=== PATIENT | female | born 1945 | race Caucasian/White ===

== ENCOUNTER 2025-02-17 18:00 | Inpatient (IN) | payer OTHER, SELFPAY ==
[2025-02-17] VITALS (8 sets, daily range): BP systolic 142–180; BP diastolic 83–88; PULSE 57–87; RESP 16–25; TEMP 36.2–37; O2SAT 96–97; BMI 30.9; BMI 30.3
--- NOTE | 2025-02-17 19:02 | CT_ITS ---
PROCEDURE: STROKE CT BRAIN/HEAD WITHOUT CONTRAST 02/17/2025 REASON FOR EXAM: VERTIGO TECHNIQUE: Procedure Code: CTBR.ST Modality: CT Procedure: STROKE BRAIN/HEAD WITHOUT CONT Coronal and Sagittal reconstruction series were provided. One or more dose reduction techniques were used (e.g., Automated exposure control, adjustment of the mA and/or kV according to patient size, use of iterative reconstruction technique. RADIATION DOSE SUMMARY: CTDlvol: 44.99 mGy DLP: 796.11 mGycm COMPARISON: None. FINDINGS: No acute intracranial hemorrhage, extra-axial collection, mass effect or evidence of acute infarct. Mild generalized brain parenchymal volume loss and chronic microangiopathic changes in the supratentorial white matter. Atherosclerotic calcification along the carotid siphons. Unremarkable orbits. Intact skull base and calvarium. Opacification of the right sphenoid sinus with chronic peripheral osseous remodeling. Remainder of the paranasal sinuses and bilateral mastoid air cells are clear. CT/STROKE Brain/Head without Cont IMPRESSION: No evidence of acute intracranial pathology. Mild generalized volume loss and chronic microangiopathic changes. Reading Location: [facility]
--- NOTE | 2025-02-17 19:02 | EKG12_ITS ---
Test Reason : DYSRHYTHMIA Blood Pressure : */* mmHG Vent. Rate : 71 BPM Atrial Rate : 71 BPM P-R Int : 194 ms QRS Dur : 82 ms QT Int : 402 ms P-R-T Axes : 33 -19 7 degrees QTcB Int : 436 ms Normal sinus rhythm Cannot rule out Anterior infarct , age undetermined Abnormal ECG Confirmed by Carlos Elise ([id number]), field map editor MARJORIE ZHOU ([id number]) on 02/18/2025 12:00:00 PM Referred By: Confirmed By: Carlos Elise
--- NOTE | 2025-02-17 19:05 | ED.VIS.STROK ---
HPI History of Present Illness Chief Complaint: Dizziness Informant: patient and family Narrative Narrative: 79-year-old female states she was in her kitchen and pouring glass of water when all of a sudden she started feeling vertiginous like everything was moving and she was going to fall and was off balance. Nausea but no vomiting. Worse with movement but never fully went away, including right now the rest. Never had this before. No recent head injury. Chronic tinnitus no changes in neck, no earache recently, no hearing changes acutely or other acute associated symptoms other than the nausea. She denies any lateralizing neurologic symptoms. No vision changes. She takes no antiplatelet or anticoagulant medications. She takes medication for blood pressure and is compliant with it, at the current level 160s, she states she is never this high. [facility] Medical History HTN (hypertension) Home Medications ?Medication ?Instructions ?Recorded ?Last Taken ?Type amlodipine 5 mg tablet 5 mg PO DAILY 03/03/15 03/16/15 06:00 History aspirin 325 mg tablet 325 mg PO BIDCM ##60 03/18/15 Unknown Rx lisinopril 30 mg tablet 30 mg PO DAILY 02/17/25 Unknown History Allergy/AdvReac Type Severity Reaction Status Date / Time naproxen Allergy Hives Verified 02/17/25 18:01 Sulfa (Sulfonamide Allergy Hives Verified 02/17/25 18:01 Antibiotics) Social History Smoking Status: Never smoker ROS ROS ED Constitutional Constitutional ED: Denies chills or fever(s) Eyes Eyes: Denies change in vision or diplopia ENT ENT ED: Reports tinnitus, vertigo and other Details: Chronic tinnitus, unchanged ; Denies rhinorrhea or sore throat Cardiovascular Cardiovascular: Denies chest pain or palpitations Respiratory/Chest Respiratory/Chest: Denies cough or dyspnea Gastrointestinal Gastrointestinal: Reports nausea; Denies abdominal pain, diarrhea or vomiting Genitourinary Genitourinary ED: Denies dysuria or hematuria Musculoskeletal Musculoskeletal: Denies back pain or neck pain Integumentary Denies abscess or rash Neurologic Neurologic: Reports headache(s); Denies paresthesias or weakness Psychiatric Psychiatric: Denies anxiety or suicidal thoughts EXAM Physical Exam Const Vital Signs: 02/17/25 18:02 02/17/25 19:14 02/17/25 19:24 Temperature 97.2 F L Temperature Source Temporal Pulse Rate 87 75 Respiratory Rate 18 18 Blood Pressure 168/87 H 173/86 H Blood Pressure Mean 114 115 Pulse Ox 96 96 Oxygen Delivery Method Room Air Room Air Room Air 02/17/25 19:26 02/17/25 19:32 02/17/25 19:54 Temperature Temperature Source Pulse Rate 82 84 67 Respiratory Rate 18 22 H 20 H Blood Pressure 173/86 H 180/85 H 156/86 H Blood Pressure Mean 115 116 109 Pulse Ox 96 96 97 Oxygen Delivery Method Room Air Room Air Room Air Positive well nourished and well developed General Appearance ED: well developed and NAD HEENT Reports moist mucous membranes normocephalic and atraumatic Eyes PERRL and EOMs intact bilaterally Eyes Narrative: No direction changing or other pathologic nystagmus. Negative skew test. Normal jolt test. Neck full ROM and supple Neck Narrative: No carotid bruits Resp normal respiratory effort and clear to auscultation bilaterally Cardio regular rate, regular rhythm and no murmurs GI non-tender and non-distended Auscultation: normoactive bowel sounds Palpation: soft Back/Spine no CVA tenderness General Back: other FROM Extremity normal to inspection General Extremety ED: Negative for edema, pulses abnormal or tenderness General Extremity: Negative for edema or pulses abnormal Neuro oriented x3, CN's II-XII intact bilaterally and no sensory deficits noted Neuro Narrative: No dysarthria or aphasia. No dysmetria. NIHSS 0. Sensorium / Orientation: awake and alert Motor Exam: strength 5/5 throughout Skin no rashes or lesions noted and no wounds MDM MDM MDM Narrative Medical decision making narrative: With her normal response to jolt testing, this is concerning for possible central etiology, as is her elevated blood pressure 168/87. Given the acute onset of this within the last 3 hours since my evaluation, and the age of the patient, blood pressure, fact and on not able to rule out central etiology here although her NIHSS is 0, stroke alert was called. Patient was sent right to CT, I reviewed the images of the plain CT, which is negative for bleed on my interpretation, and I reviewed the CTA which on my interpretation does not appear to show an LVO. I did not receive a call from the radiologist but I saw all of their report at approximately 192. We were having issues with our telemedicine robot so I discussed with stroke neurology from [facility] over the phone. He agrees with me, that this is relatively nondisabling right now and with her age we both agree that the risks outweigh the potential benefits of thrombolytics, therefore he recommends not giving thrombolytics for this at this time but admitting for further workup which is my plan. CTA results were not called to me but I noticed the results at 2031, basically negative for any acute vascular occlusion. Lab Data Attestation: I reviewed the patient's lab results. Labs: Laboratory Results - last 24 hr 02/17/25 02/17/25 19:05 19:12 WBC 6.4 RBC 4.81 Hgb 14.7 Hct 42.4 MCV 88.1 MCH 30.6 MCHC 34.7 RDW Std Deviation 43.4 RDW Coeff of Annita 13.3 Plt Count 271 MPV 10.0 Immature Gran % (Auto) 0.300 Neut % (Auto) 77.6 H Lymph % (Auto) 15.0 L [place] % (Auto) 5.0 Eos % (Auto) 1.3 Baso % (Auto) 0.8 Absolute Neuts (auto) 5.0 Absolute Lymphs (auto) 0.96 Nucleated RBC % 0 PT 13.4 INR 1.0 APTT 24.3 Sodium 137 Potassium 3.6 Chloride 102 Carbon Dioxide 22.5 Anion Gap 12 BUN 12 Creatinine 0.59 L Estim Creat Clear Calc 54.29 Est GFR (MDRD) Non-Af 93 BUN/Creatinine Ratio 19.4 Glucose 133 H Calcium 8.6 Troponin T High Sens 10 POC Glucose 125 H Radiography Diagnostic Testing: Clinical Impression(s) from Imaging Studies Brain CT 02/17/25 19:02 IMPRESSION: No evidence of acute intracranial pathology. Mild generalized volume loss and chronic microangiopathic changes. Reading Location: [facility] Head/Neck CTA 02/17/25 19:14 IMPRESSION: Patent intracranial and cervical arterial vasculature. No significant stenosis. Right apical 4 mm pulmonary nodule; suggest follow-up per Fleischner society guidelines. Reading Location: [facility] Rhythm Strip Rhythm Strip: Sinus Rhythm Rate: 70 Ectopy: None EKG Initial EKG: Attestation: I personally reviewed and interpreted this EKG as follows: Interpretation: Sinus Rhythm and No Acute Injury Pattern Comments: Nml axis & intervals; nml EKG Management Discussion w/another healthcare provider: Hospitalist and Contracting Engineer (stroke neuro) Critical Care Time Critical Care Time: Yes Critical care time (excluding procedures): 30-74 minutes (38 min), Including time spent:, Discussing w/Patient &/or Family/Reel Worker, Discussing w/Consultants, Arranging Admission or Transfer and Performing Direct Patient Care at Bedside Discharge Plan Dx/Rx/DC Orders Clinical Impression: Vertigo, Accelerated hypertension Disposition Disposition: Acute Care Hospital [facility] NIHSS NIHSS 1a. Level of Consciousness: 0 - Alert; keenly responsive 1b. LOC Questions: 0 - Answers BOTH questions correctly 1c. LOC Commands: 0 - Performs BOTH tasks correctly 2. Best Gaze: 0 - Normal 3. Visual: 0 - No visual loss 4. Facial Palsy: 0 - Normal symmetrical movements 5a. Left Arm: 0 - No drift; arm holds 90 (or 45) degrees for full 10 seconds 5b. Right Arm: 0 - No drift; arm holds 90 (or 45) degrees for full 10 seconds 6a. Left Le - No drift; leg holds 30-degree position for full 5 seconds 6b. Right Le - No drift; leg holds 30-degree position for full 5 seconds 7. Limb Ataxia: 0 - Absent 8. Sensory: 0 - Normal; no sensory loss 9. Best Language: 0 - No aphasia; normal 10. Dysarthria: 0 - Normal 11. Extinction and Inattention: 0 - No abnormality Total: 0 Stroke Questions Stroke Team Activated: Yes IV Thrombolytic Administered: No (Due to mild/nondisabling symptoms)
--- NOTE | 2025-02-17 19:14 | CT_ITS ---
PROCEDURE: STROKE CTA HEAD AND NECK W/CON 02/17/2025 REASON FOR EXAM: VERTIGO TECHNIQUE: Procedure Code: CTCTA.ST.HN Modality: CT Procedure: STROKE CTA HEAD AND NECK W/CON Multiplanar Sagittal and Coronal images were obtained. 3D post processing was performed. CONTRAST: Isovue 370 VOLUME: 100 mL One or more dose reduction techniques were used (e.g., Automated exposure control, adjustment of the mA and/or kV according to patient size, use of iterative reconstruction technique). RADIATION DOSE SUMMARY: DLP: 584.2 mGycm COMPARISON: None. FINDINGS: CTA HEAD: Patent intracranial arterial vasculature. No large vessel occlusion, flow- limiting stenosis, saccular aneurysm, or vascular malformation identified. Left posterior cerebral artery is predominantly origin, with relatively hypoplastic connection to the basilar artery. Dural venous sinuses appear patent. CTA NECK: Conventional aortic arch branching. Bilateral cervical carotid and codominant vertebral arteries are patent without significant stenosis. No aneurysm or dissection. NON-ANGIOGRAPHIC FINDINGS: 4 mm subpleural nodule in the visualized right lung apex. Chronic opacification of right sphenoid sinus with peripheral osseous remodeling. Mild multilevel cervical spondylotic changes. CT/STROKE CTA Head AND Neck W/Con IMPRESSION: Patent intracranial and cervical arterial vasculature. No significant stenosis . Right apical 4 mm pulmonary nodule; suggest follow-up per Fleischner society gu idelines. Reading Location: [facility]
[2025-02-17 19:27] LABS: Hematocrit 42.4 % (37-47); Hemoglobin 14.7 g/dL (12.0-15.0); Immature Granulocytes Count 0.020 X10^3/uL (0.0-0.0); Mean Corp Hgb Conc 34.7 g/dL (32-36); Mean Corpuscular Volume 88.1 fL (81-99); Mean Platelet Vol. 10.0 fl (6.2-12.0); NRBC Flagged by Analyzer 0 % (0-5); Platelet Count 271 K/mm3 (150-450); RBC Distribution Width CV 13.3 % (11.6-14.6); RBC Distribution Width SD 43.4 fl (35.1-43.9); Red Blood Count 4.81 M/mm3 (4.2-5.4); White Blood Count 6.4 K/mm3 (4.4-11.0)
--- NOTE | 2025-02-17 19:37 | ED.RN ---
[facility] telestroke robot malfunctioning, physician talking to Dr. Murdock on phone.
[2025-02-17 19:46] LABS: Prothrombin Time (Protime)PT. 13.4 SECONDS (11.7-14.9)
[2025-02-17 19:47] LABS: Partial Thromboplast Time 24.3 Seconds (24.1-36.2)
[2025-02-17 19:48] LABS: Anion Gap 12 (5-15); BUN 12 mg/dL (4-19); BUN/Creat Ratio 19.4 RATIO (10-20); Calcium,Total 8.6 mg/dL (7.6-11.0); Carbon Dioxide 22.5 mmol/L (21.0-32.0); Chloride 102 mmol/L (98-108); Estimated Creatinine Clearance 54.29 ml/min (50-250); Glucose 133 mg/dL (70-99); Potassium 3.6 mmol/L (3.3-5.1); Troponin T High Sensitivity 10 ng/L (<=14)
--- NOTE | 2025-02-17 21:12 | PCM.HP.STD ---
HPI - General General Date of Admission: 02/17/25 Date of Service: 02/17/25 Chief Complaint: Sudden onset dizziness HPI Narrative SEAN GOMEZ, is a 79 F who presents to the emergency room chief complaint of sudden onset of dizziness. Onset of symptoms began 4:00 this evening when she became acutely dizzy and felt as if she was going to fall to the floor. She experienced nausea but did not vomit with this episode. The symptoms were made worse with movement and got better with rest. Patient denies any other neurologic symptoms no slurring of speech, no loss of motor functions or any sensory deficit, she does now complain of a mild headache on her right side. CT scan of the brain was negative for hemorrhage and CT angiogram of the head and neck was negative for any significant stenosis however there was a 4 mm right apex pulmonary nodule noted that will need followed up subsequently. Laboratory studies reveal white blood cell count of 6.4, hemoglobin 14.7, hematocrit 42.4, platelets 271, sodium 137, potassium 3.6, chloride 102, bicarb 22.5, BUN 12, creatinine 0.59, glucose 133. Patient expressed wish to remain full code at this time with family present. At this time patient is most likely experiencing symptoms of vertigo, however, we will get an MRI in the a.m. to rule out stroke. [facility] Medical History HTN (hypertension) Home Medications ?Medication ?Instructions ?Recorded ?Last Taken ?Type amlodipine 5 mg tablet 5 mg PO DAILY 03/03/15 02/17/25 History lisinopril 30 mg tablet 30 mg PO DAILY 02/17/25 02/17/25 History Allergy/AdvReac Type Severity Reaction Status Date / Time naproxen Allergy Hives Verified 02/17/25 18:01 Sulfa (Sulfonamide Allergy Hives Verified 02/17/25 18:01 Antibiotics) Social History Smoking Status: Never smoker ROS Constitutional Constitutional: Denies chills or fever(s) Eyes Eyes: Denies blurry vision or double vision ENT HEENT: Reports headache(s); Denies abnormal hearing, dysphagia, hearing loss, loss taste/smell or nasal congestion Cardiovascular Cardiovascular: Denies chest pain or syncope Respiratory/Chest Respiratory/Chest: Denies cough or shortness of breath at rest Gastrointestinal Gastrointestinal: Denies abdominal pain Genitourinary Genitourinary: Denies dysuria Musculoskeletal Musculoskeletal: Denies back pain or extremity pain Integumentary Integumentary: Denies dry skin Neurologic Neurologic: Reports dizziness and headache(s); Denies abnormal speech, confusion, focal weakness, numbness, seizures, sensory deficit, tingling or tremor(s) Psychiatric Psychiatric: Denies anxiety Vital Signs Vital Signs Vital Signs: 02/17/25 18:02 02/17/25 19:14 02/17/25 19:24 Temperature 97.2 F L Temperature Source Temporal Pulse Rate 87 75 Respiratory Rate 18 18 Blood Pressure 168/87 H 173/86 H Blood Pressure Mean 114 115 Pulse Ox 96 96 Oxygen Delivery Method Room Air Room Air Room Air 02/17/25 19:26 02/17/25 19:32 02/17/25 19:54 Temperature Temperature Source Pulse Rate 82 84 67 Respiratory Rate 18 22 H 20 H Blood Pressure 173/86 H 180/85 H 156/86 H Blood Pressure Mean 115 116 109 Pulse Ox 96 96 97 Oxygen Delivery Method Room Air Room Air Room Air 02/17/25 21:00 Temperature Temperature Source Pulse Rate 67 Respiratory Rate 22 H Blood Pressure 159/88 H Blood Pressure Mean 111 Pulse Ox 97 Oxygen Delivery Method Room Air Weight Weight: 163 lb 12.855 oz Body Mass Index (BMI) 30.9 Results Lab / Micro Data 02/17/25 19:12 02/17/25 19:12 Labs: Laboratory Results - last 24 hr 02/17/25 19:05: POC Glucose 125 H 02/17/25 19:12: WBC 6.4, RBC 4.81, Hgb 14.7, Hct 42.4, MCV 88.1, MCH 30.6, MCHC 34.7, RDW Std Deviation 43.4, RDW Coeff of Annita 13.3, Plt Count 271, MPV 10.0, Immature Gran % (Auto) 0.300, Neut % (Auto) 77.6 H, Lymph % (Auto) 15.0 L, [place] % (Auto) 5.0, Eos % (Auto) 1.3, Baso % (Auto) 0.8, Absolute Neuts (auto) 5.0, Absolute Lymphs (auto) 0.96, Nucleated RBC % 0, PT 13.4, INR 1.0, APTT 24.3, Sodium 137, Potassium 3.6, Chloride 102, Carbon Dioxide 22.5, Anion Gap 12, BUN 12, Creatinine 0.59 L, Estim Creat Clear Calc 54.29, Est GFR (MDRD) Non-Af 93, BUN/Creatinine Ratio 19.4, Glucose 133 H, Calcium 8.6, Troponin T High Sens 10 Rhythm Strip Rhythm Strip: Sinus Rhythm Rate: 70 Ectopy: None Imaging Radiology Impression Brain CT 02/17/25 19:02 IMPRESSION: No evidence of acute intracranial pathology. Mild generalized volume loss and chronic microangiopathic changes. Reading Location: [facility] Head/Neck CTA 02/17/25 19:14 IMPRESSION: Patent intracranial and cervical arterial vasculature. No significant stenosis. Right apical 4 mm pulmonary nodule; suggest follow-up per Fleischner society guidelines. Reading Location: [facility] Assessment & Plan Assessment/Plan (1) Accelerated hypertension: (2) Vertigo: PLAN: Plan 1 acute vertigo?severe?admit patient to progressive care unit, initiate neurologic examination every 4 hours overnight and set patient up for MRI of the brain in the a.m. to rule out stroke. Patient may be given antiemetic medications throughout the night. Will repeat CBC BMP in the a.m. patient currently has NIH score of 0 and due to low probability stroke at this time further anticoagulation is not in my opinion necessary 2. Accelerated hypertension?will place patient on antihypertensive protocol in accordance with stroke protocol until MRI rules out stroke. 3. DVT prophylaxis?low molecular weight heparin 4. CODE STATUS full verified with patient Charges/Coding Visit Charges Inpatient E&M: 95939 Init Hosp L2
[2025-02-17 21:45] LABS: Troponin T High Sens 2 HR 9 ng/L (<=14)
[2025-02-17 23:40] LABS: Troponin T High Sens 4 HR 8 ng/L (<=14)
[2025-02-18] VITALS (7 sets, daily range): BP systolic 131–178; BP diastolic 67–101; PULSE 52–71; RESP 16–18; TEMP 36.4–36.6; O2SAT 95–98; BMI 30.3
[2025-02-18 05:46] LABS: Hematocrit 39.9 % (37-47); Hemoglobin 13.7 g/dL (12.0-15.0); Immature Granulocytes Count 0.010 X10^3/uL (0.0-0.0); Mean Corp Hgb Conc 34.3 g/dL (32-36); Mean Corpuscular Volume 87.9 fL (81-99); Mean Platelet Vol. 10.0 fl (6.2-12.0); NRBC Flagged by Analyzer 0 % (0-5); Platelet Count 255 K/mm3 (150-450); RBC Distribution Width CV 13.6 % (11.6-14.6); RBC Distribution Width SD 43.8 fl (35.1-43.9); Red Blood Count 4.54 M/mm3 (4.2-5.4); White Blood Count 6.0 K/mm3 (4.4-11.0)
--- NOTE | 2025-02-18 05:55 | MRI_ITS ---
PROCEDURE: BRAIN WITHOUT CONTRAST N/A REASON FOR EXAM: VERTIGO/DIZZINESS TECHNIQUE: Procedure Code: MRIBR Modality: MR Procedure: BRAIN WITHOUT CONTRAST Multiplanar and multisequence images were obtained. COMPARISON: 1 day prior FINDINGS: Brain: No evidence of hemorrhage. No evidence of acute ischemia. No extra- axial collection, midline shift or mass effect. T2 prolongation in the periventricular white matter and deep white matter of the frontal and parietal lobes. Ventricles: Mild volume loss. No hydrocephalus. Major Intracranial Vessels: Flow voids are unremarkable. Correlate with CT angiogram of 1 day prior. Sinuses: Clear. Mastoids: Clear. Middle ears are clear bilaterally. MRI/Brain without Contrast IMPRESSION: No evidence of acute ischemia or hemorrhage. Mild chronic microvascular ischem ic change, volume loss. No mastoid effusion or middle ear effusion. Reading Location: [id number]
[2025-02-18 06:25] LABS: Anion Gap 12 (5-15); BUN 11 mg/dL (4-19); BUN/Creat Ratio 17.5 RATIO (10-20); Calcium,Total 8.9 mg/dL (7.6-11.0); Carbon Dioxide 24.1 mmol/L (21.0-32.0); Chloride 106 mmol/L (98-108); Cholesterol 202 mg/dL (<=200); Estimated Creatinine Clearance 53.77 ml/min (50-250); Glucose 99 mg/dL (70-99); Low Density Lipoprotein Calc. 124 mg/dL; Potassium 3.6 mmol/L (3.3-5.1); Triglycerides 84 mg/dL; Very Low Density Lipoprotein 17 mg/dL (5-40); cholesterol:hdl ratio screen 3.28
--- NOTE | 2025-02-18 08:29 | PCM.PN.HOSP ---
Reason for Visit Chief Complaint: Sudden onset dizziness Subjective Subjective Patient is a 79-year-old female who presented with dizziness. Was also found to have markedly elevated blood pressure admitted to monitored bed for further management Objective Data Objective Data Vital Signs: Vital Signs Temp Pulse Resp BP Pulse Ox O2 Del Method 97.8 F 55 L 16 155/77 H 95 Room Air 02/18/25 08:08 02/18/25 08:08 02/18/25 08:08 02/18/25 08:08 02/18/25 08:08 02/18/25 08:23 Oxygen Delivery Method Room Air Weight: 72.9 kg Body Mass Index (BMI) 30.3 Lab / Micro Data 02/18/25 04:48 02/18/25 04:48 Labs: Laboratory Results - last 24 hr 02/17/25 19:05: POC Glucose 125 H 02/17/25 19:12: WBC 6.4, RBC 4.81, Hgb 14.7, Hct 42.4, MCV 88.1, MCH 30.6, MCHC 34.7, RDW Std Deviation 43.4, RDW Coeff of Annita 13.3, Plt Count 271, MPV 10.0, Immature Gran % (Auto) 0.300, Neut % (Auto) 77.6 H, Lymph % (Auto) 15.0 L, [place] % (Auto) 5.0, Eos % (Auto) 1.3, Baso % (Auto) 0.8, Absolute Neuts (auto) 5.0, Absolute Lymphs (auto) 0.96, Nucleated RBC % 0, PT 13.4, INR 1.0, APTT 24.3, Sodium 137, Potassium 3.6, Chloride 102, Carbon Dioxide 22.5, Anion Gap 12, BUN 12, Creatinine 0.59 L, Estim Creat Clear Calc 54.29, Est GFR (MDRD) Non-Af 93, BUN/Creatinine Ratio 19.4, Glucose 133 H, Calcium 8.6, Troponin T High Sens 10 02/17/25 21:10: Troponin T Hi Sens 2 Hr 9 02/17/25 23:12: Troponin T Hi Sens 4Hr 8 02/18/25 04:48: WBC 6.0, RBC 4.54, Hgb 13.7, Hct 39.9, MCV 87.9, MCH 30.2, MCHC 34.3, RDW Std Deviation 43.8, RDW Coeff of Annita 13.6, Plt Count 255, MPV 10.0, Immature Gran % (Auto) 0.200, Neut % (Auto) 59.4, Lymph % (Auto) 28.3, [place] % (Auto) 7.5, Eos % (Auto) 3.6, Baso % (Auto) 1.0, Absolute Neuts (auto) 3.6, Absolute Lymphs (auto) 1.71, Nucleated RBC % 0, Sodium 142, Potassium 3.6, Chloride 106, Carbon Dioxide 24.1, Anion Gap 12, BUN 11, Creatinine 0.61 L, Estim Creat Clear Calc 53.77, Est GFR (MDRD) Non-Af 92, BUN/Creatinine Ratio 17.5, Glucose 99, Calcium 8.9, Triglycerides 84, Cholesterol 202 H, LDL Cholesterol, Calc 124, VLDL Cholesterol 17, HDL Cholesterol 62, Cholesterol/HDL Ratio 3.28 Radiography Diagnostic Testing: Radiology Impression Brain CT 02/17/25 19:02 IMPRESSION: No evidence of acute intracranial pathology. Mild generalized volume loss and chronic microangiopathic changes. Reading Location: [id number] Head/Neck CTA 02/17/25 19:14 IMPRESSION: Patent intracranial and cervical arterial vasculature. No significant stenosis. Right apical 4 mm pulmonary nodule; suggest follow-up per Fleischner society guidelines. Reading Location: [id number] Rhythm Strip Rhythm Strip: Sinus Rhythm Rate: 70 Ectopy: None Physical Exam Narrative GENERAL: cooperative HEENT: Atraumatic; normocephalic EYES; Anicteric, Normal Conjunctiva NECK; supple, normal thyroid, RESPIRATORY: Diminished to auscultation CARDIOVASCULAR: Regular S1 S2, GI: soft, normoactive bowel sounds, : No Renal angle tenderness; EXTREMITIES: No edema, no clubbing, MUSCULOSKELETAL: no muscle wasting NEURO: Awake; no lateralizing signs. SKIN: No Rash PSYCH; Flat affect Assessment & Plan Assessment/Plan (1) Accelerated hypertension: (2) Vertigo: PLAN: Plan Patient is a 79-year-old female who presented with dizziness. Was also found to have markedly elevated blood pressure admitted to monitored bed for further management 1. Acute vertigo ? Patient has been admitted to a monitored bed. Placed on telemetry for continuous monitoring. As part of his management every 4 neurochecks ordered in addition to MRI to rule out posterior circulation CVA. Also ordered 2D echo 2. Acute hypertensive urgency ? Patient blood pressure on admission was 180/85 ? Permissive hypertension protocol pursued given patient being evaluated for possible CVA 3. DVT prophylaxis ? Subcu heparin Charges/Coding Visit Charges Inpatient E&M: 43655 Subs Hosp L2 NIHSS NIHSS Nursing Documentation NIHSS Nursing Documentation: NIHSS: Ischemic Stroke/TIA Start: 02/17/25 22:19 Text: For PCU Patients: NIH and Neuro Check every 4 Status: Active hours, PRN and with change in RN caregiver. Freq: [id number] Protocol: Activity Type Activity Date Activity User E-sign Co-sign Detail Recorded Client Recorded Date Recorded By Document 02/18/25 08:08 SS desktop 02/18/25 08:08 SS 02/18/25 08:08 NIH Stroke Scale [NIHSS] A score of 0 is normal or asymptomatic . Total possible score is 42. Inpatient: RN or Physician to activate a stroke alert for onset of new stroke symptoms or with NIHSS increase >/= 3 points. Following change in neurological status, NIHSS will be performed per physician order or more frequently PRN. -1a. Level of Consciousness 0 - Alert; keenly responsive -1b. LOC Questions 0 - Answers BOTH questions correctly -1c. LOC Commands 0 - Performs BOTH tasks correctly -2. Best Gaze 0 - Normal -3. Visual 0 - No visual loss -4. Facial Palsy 0 - Normal symmetrical movements -5a. Left Arm 0 - No drift; arm holds 90 ( or 45) degrees for full 10 seconds -5b. Right Arm 0 - No drift; arm holds 90 ( or 45) degrees for full 10 seconds -6a. Left Leg 0 - No drift; leg holds 30- degree position for full 5 seconds -6b. Right Leg 0 - No drift; leg holds 30- degree position for full 5 seconds -7. Limb Ataxia 0 - Absent -8. Sensory 0 - Normal; no sensory loss -9. Best Language 0 - No aphasia; normal -10. Dysarthria 0 - Normal -11. Extinction and Inattention 0 - No abnormality -Total 0 Query Text:A score of 0 is normal or asymptomatic. Total possible score is 42 . ED: Notify Physician for NIHSS increase by > / = 3 points. Inpatient: RN or Physician to activate a stroke alert for NIHSS increase of > / = 3 points. Coma Scale [Assess] -Eye Opening Spontaneous -Motor Obeys Commands -Verbal Oriented [Total] -Coma Scale Total 15
--- NOTE | 2025-02-18 08:37 | ECHOD_ITS ---
Reason For Study Reason For Study: TIA/CVA Procedure This was a 2D Doppler, Color Flow transthoracic echocardiogram. Exam performed portable in patient room. Left Ventricle Normal LV size. Mild concentric left ventricular hypertrophy. Left ventricular systolic function is normal. The left ventricular ejection fraction is 65 %. Stage 1 diastolic dysfunction. Right Ventricle Normal RV size. Normal systolic function. Atria The left and right atria are normal. Prominent eustachian valve. Mitral Valve Mild mitral annular calcification. Trivial mitral valve insufficiency. Tricuspid Valve Normal tricuspid valve. Trivial tricuspid valve insufficiency. Pulmonary artery systolic pressure is 23 mmHg. Aortic Valve Trisinus/trileaflet aortic valve. Aortic sclerosis, no stenosis. Mild focal aortic valve calcification. Pulmonic Valve The pulmonic valve is not well visualized. Great Vessels Normal sized aortic root. Pericardium/Pleural No pericardial effusion. MMode/2D Measurements & Calculations LVIDd: 3.6 cm IVSd: 1.3 cm Ao root diam: 3.3 cm LVIDs: 2.5 cm LVPWd: 1.2 cm RVDd: 3.2 cm FS: 32.1 % LAV(MOD-bp): 45.9 ml LVAd ap4: 23.7 cm2 SV(MOD-sp4): 40.2 ml LAV(MOD-bp) Indexed: 26.7 ml/m2 LVLd ap4: 7.9 cm SI(MOD-sp4): 23.4 ml/m2 LAV(MOD-sp2): 44.4 ml EDV(MOD-sp4): 58.1 ml LAV(MOD-sp4): 41.1 ml EDV(sp4-el): 60.1 ml LVAs ap4: 11.5 cm2 LVLs ap4: 6.6 cm ESV(MOD-sp4): 18.0 ml ESV(sp4-el): 17.0 ml EF(MOD-sp4): 69.1 % EF(sp4-el): 71.7 % SV(sp4-el): 43.1 ml LA A4 area: 16.4 cm2 LA dimension(2D): 3.6 cm TAPSE: 2.5 cm Time Measurements MV dec time: 0.28 sec Doppler Measurements & Calculations MV E max oswaldo: 81.1 cm/sec Lat Peak E' Oswaldo: 11.6 cm/sec Med Peak E' Oswaldo: 8.0 cm/sec MV A max oswaldo: 98.5 cm/sec E/E' lat: 7.0 E/E' med: 10.1 MV E/A: 0.82 MV dec slope: 293.6 cm/sec2 Ao V2 max: 191.3 cm/sec LV V1 max: 154.1 cm/sec Ao max P.6 mmHg LV V1 max P.5 mmHg Ao V2 mean: 150.1 cm/sec LV V1 mean P.7 mmHg Ao mean P.6 mmHg LV V1 mean: 126.5 cm/sec Ao V2 VTI: 49.1 cm LV V1 VTI: 43.4 cm AV (velocity ratio): 0.88 PA V2 max: 83.5 cm/sec TR max oswaldo: 224.1 cm/sec TR max P.2 mmHg ECHO/Echo Complete Interpretation Summary The left ventricular ejection fraction is 65 %. Stage 1 diastolic dysfunction. Mild concentric left ventricular hypertrophy. Mild mitral annular calcification. Aortic sclerosis, no stenosis. Ordering Physician: Jeffrey Mckeon Referring Physician: Vianney Barrios Performed By: Sendy Mendes, CIRILOCS, RVT
--- NOTE | 2025-02-18 10:40 | CASEMGMT ---
RN CM Face to Face with patient for initial transition planning/care coordination assessment. RN CM introduced self and role at [facility]. Patient lying in bed, alert and oriented, family at bedside. Patient willing to participate in assessment and is able to answer all questions appropriately. Care providers, pharmacy, and demographics verified. Strata: 1 PCP: Denis Specialists: none Preferred Pharmacy: [facility] Insurance: [facility] [place] Prescription Benefit: none Living Will/HPOA: son Salas Karimi LNOK: son, daughter Living Arrangements: Patient lives alone in a single story home with 3 steps and railing to enter the home. Patient is independent at home. Son lives next door and family is able to assist if needed Transportation: Children DME/HHC: Patient has cane and grab bars at home. No previous SNF. Patient has had Promotion therapy in the past. Patient wishes to discharge home, denies need for home health at this time. Patient states he has no further needs or concerns at this time. CM to follow for discharge planning needs that may arise. Disposition Plan: Patient to discharge home with family support and follow-up plans in place. Esme FOX, RN, CM
--- NOTE | 2025-02-18 11:44 | CHAPLAIN ---
Type of Pastoral Visit _x__ Initial Visit ___ Follow-up Visit ___ On-call Visit ___ General Patient Visit ___ Spiritual Assessment ___ Family Conference ___ Bereavement ___ Rapid Response ___ Code Blue ___ Other (describe below) Pastoral Care Referral From _x__ Patient ___ Family ___ Nurse ___ Physician ___ Community Development Coordinator ___ Manager Sap ___ Other (describe below) Sacrament/Intervention _x__ Active listening ___ Anointing ___ Gnosticism ___ Bereavement ___ Communion ___ Joann exploration ___ ___ Life review _x__ Prayer ___ Reconciliation ___ Sacrament of Sick _x__ Supportive presence ___ Wedding ___ Other (describe below) Pastoral Comments patient and DIL are in the room; pt reports on improvement and her reliance on God and prayers; pt has good family support as well; pt is pleasant and talkative about her joann in God; prayer and presence given
--- NOTE | 2025-02-18 13:24 | PCM.DC.SUM ---
Providers Date of Admission: 02/17/25 Primary Care Physician: Dr. Vianney Barrios MD Reason For Visit: VERTIGO, ACCELERATED HYPERTENSION Diagnosis Discharge Diagnosis (1) Accelerated hypertension: Status: Acute Code(s): I10 - Essential (primary) hypertension (2) Vertigo: Status: Acute Code(s): R42 - Dizziness and giddiness Plan Patient is a 79-year-old female who presented with dizziness. Was also found to have markedly elevated blood pressure admitted to monitored bed for further management 1. Acute vertigo ? Patient has been admitted to a monitored bed. Placed on telemetry for continuous monitoring. As part of his management every 4 neurochecks ordered in addition to MRI to rule out posterior circulation CVA. Also ordered 2D echo. 2D echo result as The left ventricular ejection fraction is 65 %. Stage 1 diastolic dysfunction. Mild concentric left ventricular hypertrophy. Mild mitral annular calcification. Aortic sclerosis, no stenosis. ? Patient's symptoms had resolved at the time of discharge 2. Acute hypertensive urgency ? Patient blood pressure on admission was 180/85 ? Permissive hypertension protocol pursued given patient being evaluated for possible CVA ? Adjusted patient antihypertensive regimen by increasing amlodipine from 5 mg to 10 mg daily discontinue lisinopril and prescribe losartan 50 mg twice daily. Patient was instructed to hold the p.m. dose of losartan if blood pressure is below 120 3. DVT prophylaxis ? Subcu heparin Medications at Discharge Home Medications amlodipine 10 mg tablet 10 mg PO DAILY #90 tabs 02/18/25 losartan 50 mg tablet 50 mg PO BID #180 tabs 02/18/25 Hospital Course Summary of Care Provided Minutes Spent on Discharge: 35 Physical Exam Narrative GENERAL: cooperative HEENT: Atraumatic; normocephalic EYES; Anicteric, Normal Conjunctiva NECK; supple, normal thyroid, RESPIRATORY: Diminished to auscultation CARDIOVASCULAR: Regular S1 S2, GI: soft, normoactive bowel sounds, : No Renal angle tenderness; EXTREMITIES: No edema, no clubbing, MUSCULOSKELETAL: no muscle wasting NEURO: Awake; no lateralizing signs. SKIN: No Rash PSYCH; Flat affect Weight / BMI Weight Weight: 72.9 kg Body Mass Index (BMI) 30.3 ABG / Lab / Microbiology Data 02/18/25 04:48 02/18/25 04:48 Laboratory: Laboratory Results - last 24 hr 02/17/25 19:05: POC Glucose 125 H 02/17/25 19:12: WBC 6.4, RBC 4.81, Hgb 14.7, Hct 42.4, MCV 88.1, MCH 30.6, MCHC 34.7, RDW Std Deviation 43.4, RDW Coeff of Annita 13.3, Plt Count 271, MPV 10.0, Immature Gran % (Auto) 0.300, Neut % (Auto) 77.6 H, Lymph % (Auto) 15.0 L, [place] % (Auto) 5.0, Eos % (Auto) 1.3, Baso % (Auto) 0.8, Absolute Neuts (auto) 5.0, Absolute Lymphs (auto) 0.96, Nucleated RBC % 0, PT 13.4, INR 1.0, APTT 24.3, Sodium 137, Potassium 3.6, Chloride 102, Carbon Dioxide 22.5, Anion Gap 12, BUN 12, Creatinine 0.59 L, Estim Creat Clear Calc 54.29, Est GFR (MDRD) Non-Af 93, BUN/Creatinine Ratio 19.4, Glucose 133 H, Calcium 8.6, Troponin T High Sens 10 02/17/25 21:10: Troponin T Hi Sens 2 Hr 9 02/17/25 23:12: Troponin T Hi Sens 4Hr 8 02/18/25 04:48: WBC 6.0, RBC 4.54, Hgb 13.7, Hct 39.9, MCV 87.9, MCH 30.2, MCHC 34.3, RDW Std Deviation 43.8, RDW Coeff of Annita 13.6, Plt Count 255, MPV 10.0, Immature Gran % (Auto) 0.200, Neut % (Auto) 59.4, Lymph % (Auto) 28.3, [place] % (Auto) 7.5, Eos % (Auto) 3.6, Baso % (Auto) 1.0, Absolute Neuts (auto) 3.6, Absolute Lymphs (auto) 1.71, Nucleated RBC % 0, Sodium 142, Potassium 3.6, Chloride 106, Carbon Dioxide 24.1, Anion Gap 12, BUN 11, Creatinine 0.61 L, Estim Creat Clear Calc 53.77, Est GFR (MDRD) Non-Af 92, BUN/Creatinine Ratio 17.5, Glucose 99, Calcium 8.9, Triglycerides 84, Cholesterol 202 H, LDL Cholesterol, Calc 124, VLDL Cholesterol 17, HDL Cholesterol 62, Cholesterol/HDL Ratio 3.28 Radiography Diagnostic Testing: Radiology Impression Brain CT 02/17/25 19:02 IMPRESSION: No evidence of acute intracranial pathology. Mild generalized volume loss and chronic microangiopathic changes. Reading Location: [facility] Head/Neck CTA 02/17/25 19:14 IMPRESSION: Patent intracranial and cervical arterial vasculature. No significant stenosis. Right apical 4 mm pulmonary nodule; suggest follow-up per Fleischner society guidelines. Reading Location: [facility] Brain MRI 02/18/25 05:55 IMPRESSION: No evidence of acute ischemia or hemorrhage. Mild chronic microvascular ischemic change, volume loss. No mastoid effusion or middle ear effusion. Reading Location: [facility] Echocardiogram 02/18/25 08:37 Interpretation Summary The left ventricular ejection fraction is 65 %. Stage 1 diastolic dysfunction. Mild concentric left ventricular hypertrophy. Mild mitral annular calcification. Aortic sclerosis, no stenosis. Ordering Physician: Jeffrey Mckeon Referring Physician: Vianney Barrios Performed By: Sendy Mendes, RDCS, RVT D/C Instructions Discharge Activity: Return to Normal Activity Call your doctor if you observe: Fever of 101 or Higher, Shortness of breath, Fainting spells and Chest pain DC O2, CPAP, BIPAP Needs Home O2 Discharge instructions: No Meaningful Use Info Meaningful Use Meaningful Use Diagnoses (Choose all that apply): None applicable Discharge Plan Admission Admit Date/Time: 02/17/25 21:20 Attending Provider: Jeffrey Mckeon Primary Care Provider: Vianney Barrios Consulting Providers: Vishal Nesbitt Discharge Orders/Prescriptions Prescriptions: New amlodipine 10 mg tablet 10 mg PO DAILY Qty: 90 0RF losartan 50 mg tablet 50 mg PO BID Qty: 180 0RF Discontinued amlodipine 5 MG tablet 5 mg PO DAILY Patient Comments: blood pressure lisinopril 30 mg tablet 30 mg PO DAILY Referrals / Follow Up: Vianney Barrios MD [Primary Care Provider] - Within 1 Week Disposition Disposition (needs filled in before D/C Order can be placed): Home, Self Care Charges/Coding Visit Charges Inpatient E&M: 88886 Disch Hosp >30min
--- NOTE | 2025-02-18 15:24 | CASEMGMT ---
Pt has an order for DC placed. However, pt's echo is pending. CM to continue to follow.
== END 2025-02-18 16:08 | disposition home or self-care (01) | DRG 149 ==
LOC: ED 19:57 → PCU 21:28
PROVIDERS: Admitting Provider Family Medicine; Emergency Provider Emergency Medicine; PCP Internal Medicine; Visit Provider Internal Medicine
DX: R42 Dizziness and giddiness (principal); I16.0 Hypertensive urgency; I70.0 Atherosclerosis of aorta; I10 Essential (primary) hypertension; Z79.899 Other long term (current) drug therapy
CPT/HCPCS: 36415; 70450; 70496; 70498; 70551; 80048; 80061; 82962; 84484; 85025; 85610; 85730; 93005; 93306; 97162; 97166; 97802; 99285; Q9967; A4216